=== PATIENT | female | born 1960 | race Caucasian/White ===

== ENCOUNTER 2017-02-27 15:27 | Emergency (ER) | payer MEDICAID ==
[~2017-02-27 15:27] MED LIST: DIAZEPAM RECTA2.5 MG PO; LOSARTAN POTASS25 M1 PO
[2017-02-27 15:41] VITALS: BP 125/81
== END 2017-02-27 17:31 | disposition left against medical advice (07) ==
LOC: ED 15:27
DX: Z53.21 Procedure and treatment not carried out due to patient leaving prior to being seen by health care provider (principal)

== ENCOUNTER 2017-02-27 21:36 | Emergency (ER) | payer SELFPAY ==
[2017-02-27 23:48] LABS: CALCIUM 9.3 mg/dL (8.5-10.1); CARBON DIOXIDE 28.7 mmol/L (21-32); CHLORIDE SERUM 101 mmol/L (98-107); CREATININE SERUM 0.7 mg/dL (0.6-1.0); GFR1 > 60 mL/min; GLUCOSE SERUM 106 mg/dL (74-106); POTASSIUM SERUM 3.4 mmol/L (3.5-5.1); SODIUM SERUM 140 mmol/L (136-145)
[2017-02-27 23:52] LABS: ALBUMIN 3.7 g/dL (3.4-5.0); ALKALINE PHOSPHATASE 153 U/L (46-116); ALT/SGPT 81 U/L (14-59); AST/SGOT 52 U/L (15-37); BILIRUBIN TOTAL 0.2 mg/dL (0.20-1.00); LIPASE 177 IU/L (73-393); TOTAL PROTEIN, SERUM 7.5 g/dL (6.4-8.2)
[2017-02-27 23:54] LABS: BASOPHIL % 0.7 % (0-2); PLATELET COUNT 244 x10^3mcL (130-400)
[2017-02-27 23:55] LABS: RED CELL DISTRIBUTION WIDTH 17.1 % (11.5-14.5)
[2017-02-28 01:58] VITALS: BP 127/75
== END 2017-02-28 01:58 | disposition home or self-care (01) ==
LOC: ED 21:36
PROVIDERS: Emergency Medicine Emergency Medical Services
DX: K80.20 Calculus of gallbladder without cholecystitis without obstruction (principal)
CPT/HCPCS: 36415; Q0092

== ENCOUNTER 2017-09-03 21:29 | Inpatient (IN) | payer MEDICAID ==
[~2017-09-03] VITALS: Ht 170.2 cm; Wt 110.2 kg
[2017-09-03 23:53] LABS: BASOPHIL % 1.1 % (0-2); PLATELET COUNT 235 x10^3mcL (130-400)
[2017-09-03 23:54] LABS: RED CELL DISTRIBUTION WIDTH 14.9 % (11.5-14.5)
[2017-09-04 00:04] LABS: ALBUMIN 4.1 g/dL (3.4-5.0); ALKALINE PHOSPHATASE 120 U/L (46-116); ALT/SGPT 51 U/L (14-59); AST/SGOT 25 U/L (15-37); BILIRUBIN TOTAL 0.4 mg/dL (0.20-1.00); CALCIUM 9.1 mg/dL (8.5-10.1); CARBON DIOXIDE 26.9 mmol/L (21-32); CHLORIDE SERUM 105 mmol/L (98-107); CREATININE SERUM 0.6 mg/dL (0.6-1.0); GFR1 > 60 mL/min; GLUCOSE SERUM 135 mg/dL (74-106); POTASSIUM SERUM 3.7 mmol/L (3.5-5.1); SODIUM SERUM 139 mmol/L (136-145); TOTAL PROTEIN, SERUM 7.1 g/dL (6.4-8.2)
[2017-09-04 02:20] VITALS: BP 122/74
[2017-09-04 03:13] VITALS: BP 110/56
[2017-09-04 04:01] LABS: MAGNESIUM 2.2 mg/dL (1.8-2.4); PHOSPHOROUS 3.3 mg/dL (2.5-4.9)
[2017-09-04 04:02] LABS: T3 TOTAL 0.83 ng/mL
[2017-09-04 04:11] LABS: CHOLESTEROL/HDL RATIO 4.4
[2017-09-04 04:27] LABS: FREE T4 0.78 ng/dL (0.76-1.46); FREE THYROXINE INDEX 2.2 ug/dL (1.4-4.5); T4(THYROXINE) 7.7 ug/dL (4.7-13.3)
[2017-09-04 05:53] LABS: microscopic required? YES; urine erythrocyte NEGATIVE (NEGATIVE)
[2017-09-04 06:00] LABS: BASOPHIL % 0.1 % (0-2); PLATELET COUNT 212 x10^3mcL (130-400)
[2017-09-04 06:01] LABS: AMPHETAMINE QUAL UR NONE DETECTED (NEG <=1000)
[2017-09-04 06:25] LABS: CALCIUM 9.1 mg/dL (8.5-10.1); CARBON DIOXIDE 25.4 mmol/L (21-32); CHLORIDE SERUM 104 mmol/L (98-107); CREATININE SERUM 0.7 mg/dL (0.6-1.0); GFR1 > 60 mL/min; GLUCOSE SERUM 229 mg/dL (74-106); SODIUM SERUM 140 mmol/L (136-145)
[2017-09-04 06:51] LABS: RED CELL DISTRIBUTION WIDTH 14.6 % (11.5-14.5)
[2017-09-04 08:39] VITALS: BP 115/56
[2017-09-04 12:30] VITALS: BP 136/68
[2017-09-04 16:35] VITALS: Ht 170.2 cm; Wt 110.2 kg
[2017-09-04 16:48] VITALS: BP 124/69
[2017-09-04 20:46] VITALS: BP 120/57
[2017-09-05 05:13] VITALS: BP 133/63
[2017-09-05 07:21] LABS: CALCIUM 8.9 mg/dL (8.5-10.1); CARBON DIOXIDE 28.1 mmol/L (21-32); CHLORIDE SERUM 106 mmol/L (98-107); CREATININE SERUM 0.7 mg/dL (0.6-1.0); GFR1 > 60 mL/min; GLUCOSE SERUM 150 mg/dL (74-106); MAGNESIUM 2.3 mg/dL (1.8-2.4); PHOSPHOROUS 3.2 mg/dL (2.5-4.9); POTASSIUM SERUM 3.7 mmol/L (3.5-5.1); SODIUM SERUM 140 mmol/L (136-145)
[2017-09-05 08:37] VITALS: BP 135/62
[2017-09-05 08:55] LABS: PLATELET COUNT 218 x10^3mcL (130-400); RED CELL DISTRIBUTION WIDTH 15.3 % (11.5-14.5)
[2017-09-05 08:56] LABS: ATYPICAL LYMPH 0 %; BAND NEUTROPHIL 0 % (0-10); MONOCYTE 7 % (0-7); SEGMENTED NEUTROPHILS 80 % (37-75)
[2017-09-05 08:57] LABS: PLATELET MORPHOLOGY PLATELETS DECREASED; rbc morphology (normal/abnorm) ABNORMAL (NORMAL)
[2017-09-05 12:43] VITALS: BP 132/72
[2017-09-05 15:51] VITALS: BP 118/62
[2017-09-05 21:07] VITALS: BP 120/62
[2017-09-06 05:45] VITALS: BP 120/56
[2017-09-06 06:51] LABS: BASOPHIL % 0.3 % (0-2); PLATELET COUNT 231 x10^3mcL (130-400)
[2017-09-06 06:58] LABS: CALCIUM 8.8 mg/dL (8.5-10.1); CARBON DIOXIDE 28.7 mmol/L (21-32); CHLORIDE SERUM 104 mmol/L (98-107); CREATININE SERUM 0.8 mg/dL (0.6-1.0); GFR1 > 60 mL/min; GLUCOSE SERUM 140 mg/dL (74-106); POTASSIUM SERUM 3.9 mmol/L (3.5-5.1); SODIUM SERUM 141 mmol/L (136-145)
[2017-09-06 06:59] LABS: RED CELL DISTRIBUTION WIDTH 14.9 % (11.5-14.5)
[2017-09-06 09:32] VITALS: BP 128/60
[2017-09-06] MEDS ORDERED: COUMADIN2 MG PO (11:28)
[2017-09-06] MEDS ORDERED: PREDNISONE10 M1 PO (11:31)
[2017-09-06] MEDS ORDERED: LAC PO (11:34)
[2017-09-06] MEDS ORDERED: LEVAQUIN750 MG PO (11:34)
[2017-09-06] MEDS ORDERED: ATORVASTATIN CA40 M1 PO (12:09)
[2017-09-06 13:52] VITALS: BP 128/60
[2017-09-06 17:54] VITALS: BP 121/59
== END 2017-09-06 18:46 | disposition home or self-care (01) | DRG 197 ==
LOC: ED 21:29 → DU 09-04 01:48 → MU 09-06 10:08
PROVIDERS: Emergency Medicine; Family Medicine
DX: I82.432 Acute embolism and thrombosis of left popliteal vein (principal); N17.0 Acute kidney failure with tubular necrosis; J45.901 Unspecified asthma with (acute) exacerbation; N39.0 Urinary tract infection, site not specified; E66.01 Morbid (severe) obesity due to excess calories; F32.9 Major depressive disorder, single episode, unspecified; E78.2 Mixed hyperlipidemia; F17.200 Nicotine dependence, unspecified, uncomplicated; F41.9 Anxiety disorder, unspecified; M85.68 Other cyst of bone, other site; E02 Subclinical iodine-deficiency hypothyroidism
CPT/HCPCS: 82962; 83880; 84439; 85378; 94150; J1644; J1885; J1956; J2405; J2920; J2930; J3490; J7620; Q0092

== ENCOUNTER → 2017-09-27 | Outpatient (CLI) | payer MEDICAID ==
[~2017-09-27] MED LIST changes: +ATORVASTATIN CA40 M1 PO; +COUMADIN2 MG PO; +LAC PO; +LEVAQUIN750 MG PO; +PREDNISONE10 M1 PO
== END | disposition home or self-care (01) ==
LOC: LB 09:43
DX: H53.2 Diplopia (principal); R58 Hemorrhage, not elsewhere classified; R74.0 Nonspecific elevation of levels of transaminase and lactic acid dehydrogenase [LDH]; I82.439 Acute embolism and thrombosis of unspecified popliteal vein

== ENCOUNTER → 2017-09-29 | Outpatient (CLI) | payer MEDICAID | END | disposition home or self-care (01) | LOC: US 09:00 | PROC: BW28ZZZ Computerized Tomography (CT Scan) of Head (ICD-10-PCS; principal; 2017-09-29) | PROC: BW40ZZZ Ultrasonography of Abdomen (ICD-10-PCS; 2017-09-29) | DX: R74.0 Nonspecific elevation of levels of transaminase and lactic acid dehydrogenase [LDH] (principal); H53.2 Diplopia ==

== ENCOUNTER 2017-11-26 13:49 | Emergency (ER) | payer SELFPAY ==
[~2017-11-26] VITALS: Ht 170.2 cm; Wt 109.8 kg
[2017-11-26 13:55] VITALS: Ht 170.2 cm; Wt 109.8 kg
[2017-11-26 14:48] LABS: PLATELET COUNT 245 x10^3mcL (130-400); RED CELL DISTRIBUTION WIDTH 13.7 % (11.5-14.5)
[2017-11-26 14:55] LABS: BASOPHIL % 2.1 % (0-2)
[2017-11-26 15:05] LABS: CALCIUM 8.9 mg/dL (8.5-10.1); CARBON DIOXIDE 24.6 mmol/L (21-32); CHLORIDE SERUM 105 mmol/L (98-107); CREATININE SERUM 0.8 mg/dL (0.6-1.0); GFR1 > 60 mL/min; GLUCOSE SERUM 99 mg/dL (74-106); POTASSIUM SERUM 3.7 mmol/L (3.5-5.1); SODIUM SERUM 142 mmol/L (136-145)
[2017-11-26 15:10] LABS: ALBUMIN 3.9 g/dL (3.4-5.0); ALKALINE PHOSPHATASE 111 U/L (46-116); ALT/SGPT 32 U/L (14-59); AST/SGOT 22 U/L (15-37); BILIRUBIN TOTAL 0.2 mg/dL (0.20-1.00); TOTAL PROTEIN, SERUM 6.7 g/dL (6.4-8.2)
[2017-11-26 18:57] VITALS: BP 123/56
== END 2017-11-26 18:57 | disposition home or self-care (01) ==
LOC: ED 13:49
PROVIDERS: Emergency Medicine
DX: J45.909 Unspecified asthma, uncomplicated (principal); F17.210 Nicotine dependence, cigarettes, uncomplicated; Z71.6 Tobacco abuse counseling
CPT/HCPCS: 83880; 99406; J2930; J7030; J7613; J7644; Q0092

== ENCOUNTER 2017-12-01 16:41 | Inpatient (IN) | payer MEDICAID ==
[~2017-12-01] VITALS: Ht 170.2 cm; Wt 104.8 kg
[2017-12-01 16:44] VITALS: Ht 170.2 cm; Wt 104.8 kg
[2017-12-01 17:27] LABS: BASOPHIL % 0.6 % (0-2); PLATELET COUNT 247 x10^3mcL (130-400); RED CELL DISTRIBUTION WIDTH 13.6 % (11.5-14.5)
[2017-12-01 17:57] LABS: CALCIUM 8.9 mg/dL (8.5-10.1); CHLORIDE SERUM 103 mmol/L (98-107); CREATININE SERUM 0.7 mg/dL (0.6-1.0); GFR1 > 60 mL/min; GLUCOSE SERUM 86 mg/dL (74-106); POTASSIUM SERUM 3.9 mmol/L (3.5-5.1); SODIUM SERUM 140 mmol/L (136-145)
[2017-12-01 18:04] LABS: ALBUMIN 3.6 g/dL (3.4-5.0); ALKALINE PHOSPHATASE 109 U/L (46-116); ALT/SGPT 39 U/L (14-59); AST/SGOT 30 U/L (15-37); BILIRUBIN TOTAL 0.2 mg/dL (0.20-1.00); HDL CHOLESTEROL 48 mg/dL (40-60); TOTAL PROTEIN, SERUM 6.7 g/dL (6.4-8.2)
[2017-12-01 18:06] LABS: CHOLESTEROL 228 mg/dL (<200)
[2017-12-01 20:06] LABS: CHOLESTEROL/HDL RATIO 4.7; MAGNESIUM 2.1 mg/dL (1.8-2.4); PHOSPHOROUS 3.9 mg/dL (2.5-4.9)
[2017-12-01 20:14] LABS: FREE T4 0.99 ng/dL (0.76-1.46); FREE THYROXINE INDEX 2.3 ug/dL (1.4-4.5); T4(THYROXINE) 7.5 ug/dL (4.7-13.3)
[2017-12-01 20:24] LABS: T3 TOTAL 1.55 ng/mL
[2017-12-01] MEDS ORDERED: AMITRIPTYLINE H25 MG PO (20:41)
[2017-12-01] MEDS ORDERED: DIAZEPAM5 MG PO (20:41)
[2017-12-01] MEDS ORDERED: CLONAZEPAM2 MG PO (20:41)
[2017-12-01 21:10] VITALS: BP 126/64
[2017-12-02] MEDS ORDERED: FLUOXETINE HYDR10 M1 PO (00:47)
[2017-12-02 05:53] VITALS: BP 117/55
[2017-12-02 06:05] LABS: PLATELET COUNT 254 x10^3mcL (130-400); RED CELL DISTRIBUTION WIDTH 13.9 % (11.5-14.5)
[2017-12-02 06:27] LABS: CALCIUM 9.1 mg/dL (8.5-10.1); CARBON DIOXIDE 29.8 mmol/L (21-32); CHLORIDE SERUM 103 mmol/L (98-107); CREATININE SERUM 0.7 mg/dL (0.6-1.0); GFR1 > 60 mL/min; GLUCOSE SERUM 168 mg/dL (74-106); POTASSIUM SERUM 4.2 mmol/L (3.5-5.1); SODIUM SERUM 141 mmol/L (136-145)
[2017-12-02 06:42] LABS: BASOPHIL % 0 % (0-2)
[2017-12-02 07:39] LABS: microscopic required? NO
[2017-12-02 08:30] VITALS: BP 149/59
[2017-12-02 08:34] LABS: urine erythrocyte NEGATIVE (NEGATIVE)
[2017-12-02 09:58] LABS: AMPHETAMINE QUAL UR NONE DETECTED (See below)
[2017-12-02 12:21] VITALS: BP 119/50
[2017-12-02 18:09] VITALS: BP 129/69
[2017-12-02 21:08] VITALS: BP 112/58
[2017-12-03 04:28] VITALS: BP 109/45
[2017-12-03 05:46] LABS: BASOPHIL % 0.2 % (0-2); PLATELET COUNT 233 x10^3mcL (130-400); RED CELL DISTRIBUTION WIDTH 13.8 % (11.5-14.5)
[2017-12-03 06:07] LABS: CALCIUM 8.9 mg/dL (8.5-10.1); CARBON DIOXIDE 27.5 mmol/L (21-32); CHLORIDE SERUM 105 mmol/L (98-107); CREATININE SERUM 0.7 mg/dL (0.6-1.0); GFR1 > 60 mL/min; GLUCOSE SERUM 141 mg/dL (74-106); MAGNESIUM 2.5 mg/dL (1.8-2.4); PHOSPHOROUS 3.3 mg/dL (2.5-4.9); POTASSIUM SERUM 4.5 mmol/L (3.5-5.1); SODIUM SERUM 141 mmol/L (136-145)
[2017-12-03 10:15] VITALS: BP 129/57
[2017-12-03] MEDS ORDERED: MEDDP PO (11:44)
[2017-12-03] MEDS ORDERED: NIC21 TD (11:44)
[2017-12-03] MEDS ORDERED: PROVENTIL0.09 MG/A1 INH (11:46)
[2017-12-03 13:06] VITALS: BP 129/57
[2017-12-03 13:26] VITALS: BP 128/72
== END 2017-12-03 13:49 | disposition home or self-care (01) | DRG 141 ==
LOC: ED 16:41 → DU 20:05
PROVIDERS: Emergency Medicine; Family Medicine
DX: J45.901 Unspecified asthma with (acute) exacerbation (principal); J96.00 Acute respiratory failure, unspecified whether with hypoxia or hypercapnia; N17.0 Acute kidney failure with tubular necrosis; M94.0 Chondrocostal junction syndrome [Tietze]; R73.03 Prediabetes; E78.5 Hyperlipidemia, unspecified; F32.9 Major depressive disorder, single episode, unspecified; F17.210 Nicotine dependence, cigarettes, uncomplicated; Z86.718 Personal history of other venous thrombosis and embolism; Z68.42 Body mass index [BMI] 45.0-49.9, adult
CPT/HCPCS: 83880; 84439; 85378; 94150; 99406; J1644; J2920; J2930; J7030; J7613; J7620; Q0092

== ENCOUNTER 2018-05-04 15:25 | Emergency (ER) | payer SELFPAY, OTHER, MEDICAID | END 2018-05-04 17:57 | disposition home or self-care (01) | LOC: ED 15:25 ==

== ENCOUNTER 2018-09-20 17:17 | Emergency (ER) | payer SELFPAY ==
[~2018-09-20] VITALS: Ht 167.6 cm; Wt 105.7 kg
[~2018-09-20 17:17] MED LIST changes: +AMITRIPTYLINE H25 MG PO; +CLONAZEPAM2 MG PO; +DIAZEPAM5 MG PO; +FLUOXETINE HYDR10 M1 PO; +MEDDP PO; +NIC21 TD; +PROVENTIL0.09 MG/A1 INH
[2018-09-20 17:29] VITALS: Ht 167.6 cm; Wt 105.7 kg
[2018-09-20 18:15] LABS: BASOPHIL % 0.5 % (0-2); PLATELET COUNT 286 x10^3mcL (130-400)
[2018-09-20 18:17] LABS: CALCIUM 8.6 mg/dL (8.5-10.1); CARBON DIOXIDE 26.8 mmol/L (21-32); CHLORIDE SERUM 103 mmol/L (98-107); CREATININE SERUM 0.7 mg/dL (0.6-1.0); GFR1 > 60 mL/min; GLUCOSE SERUM 105 mg/dL (74-106); POTASSIUM SERUM 4.3 mmol/L (3.5-5.1); SODIUM SERUM 138 mmol/L (136-145)
[2018-09-20 18:20] LABS: ALKALINE PHOSPHATASE 114 U/L (46-116); ALT/SGPT 36 U/L (14-59); AST/SGOT 13 U/L (15-37); BILIRUBIN TOTAL 0.2 mg/dL (0.20-1.00)
[2018-09-20 18:21] LABS: ALBUMIN 3.3 g/dL (3.4-5.0); CHOLESTEROL 237 mg/dL (<200); HDL CHOLESTEROL 32 mg/dL (40-60); TOTAL PROTEIN, SERUM 6.1 g/dL (6.4-8.2)
[2018-09-20 18:22] LABS: RED CELL DISTRIBUTION WIDTH 16.8 % (11.5-14.5)
[2018-09-20 19:25] LABS: microscopic required? NO
[2018-09-20 19:31] LABS: urine erythrocyte NEGATIVE (NEGATIVE)
[2018-09-20 20:07] VITALS: BP 119/72
== END 2018-09-20 20:07 | disposition home or self-care (01) ==
LOC: ED 17:17
PROVIDERS: Emergency Medicine
DX: F43.20 Adjustment disorder, unspecified (principal); D64.9 Anemia, unspecified; E86.0 Dehydration; G47.00 Insomnia, unspecified
CPT/HCPCS: 36415; Q0092

== ENCOUNTER 2018-09-21 14:30 | Emergency (ER) | payer SELFPAY ==
[~2018-09-21] VITALS: Ht 165.1 cm; Wt 105.3 kg
[2018-09-21 14:34] VITALS: Ht 165.1 cm; Wt 105.3 kg
[2018-09-21 16:35] LABS: BASOPHIL % 0.8 % (0-2); CALCIUM 8.7 mg/dL (8.5-10.1); CARBON DIOXIDE 27.1 mmol/L (21-32); CHLORIDE SERUM 105 mmol/L (98-107); CREATININE SERUM 0.6 mg/dL (0.6-1.0); GFR1 > 60 mL/min; GLUCOSE SERUM 101 mg/dL (74-106); PLATELET COUNT 279 x10^3mcL (130-400); SODIUM SERUM 140 mmol/L (136-145)
[2018-09-21 16:36] LABS: RED CELL DISTRIBUTION WIDTH 17.3 % (11.5-14.5)
[2018-09-21 16:40] LABS: ALKALINE PHOSPHATASE 103 U/L (46-116); ALT/SGPT 29 U/L (14-59); AST/SGOT 20 U/L (15-37); BILIRUBIN TOTAL 0.22 mg/dL (0.20-1.00); LIPASE 136 IU/L (73-393); TOTAL PROTEIN, SERUM 6.2 g/dL (6.4-8.2)
[2018-09-21 16:41] LABS: ALBUMIN 3.2 g/dL (3.4-5.0)
[2018-09-21 16:46] LABS: UA SPECIFIC GRAVITY 1.015 (1.005-1.035); microscopic required? YES; urine erythrocyte NEGATIVE (NEGATIVE)
[2018-09-21 18:10] VITALS: BP 106/71
== END 2018-09-21 18:10 | disposition home or self-care (01) ==
LOC: ED 14:30
PROVIDERS: Emergency Medicine
DX: R11.10 Vomiting, unspecified (principal); R19.7 Diarrhea, unspecified; R10.13 Epigastric pain; E11.9 Type 2 diabetes mellitus without complications; F32.9 Major depressive disorder, single episode, unspecified; R53.1 Weakness; G47.00 Insomnia, unspecified; R42 Dizziness and giddiness
CPT/HCPCS: J0696; J2405; J3490; J7030

== ENCOUNTER 2018-10-07 17:17 | Emergency (ER) | payer SELFPAY ==
[~2018-10-07] VITALS: Ht 167.6 cm; Wt 106.1 kg
[2018-10-07 17:27] VITALS: Ht 167.6 cm; Wt 106.1 kg
[2018-10-07 18:44] LABS: BASOPHIL % 0.9 % (0-2); PLATELET COUNT 318 x10^3mcL (130-400)
[2018-10-07 18:47] LABS: RED CELL DISTRIBUTION WIDTH 23.8 % (11.5-14.5)
[2018-10-07 18:52] LABS: CALCIUM 9.1 mg/dL (8.5-10.1); CARBON DIOXIDE 30.8 mmol/L (21-32); CHLORIDE SERUM 104 mmol/L (98-107); CREATININE SERUM 0.8 mg/dL (0.6-1.0); GFR1 > 60 mL/min; GLUCOSE SERUM 94 mg/dL (74-106); SODIUM SERUM 142 mmol/L (136-145)
[2018-10-07 18:53] LABS: rbc morphology (normal/abnorm) ABNORMAL (NORMAL)
[2018-10-07 20:33] VITALS: BP 125/82
== END 2018-10-07 20:33 | disposition home or self-care (01) ==
LOC: ED 17:17
PROVIDERS: Emergency Medicine
DX: J45.901 Unspecified asthma with (acute) exacerbation (principal); R53.83 Other fatigue; F32.9 Major depressive disorder, single episode, unspecified
CPT/HCPCS: 36415; J7512; J7644

== ENCOUNTER 2018-10-14 20:58 | Emergency (ER) | payer SELFPAY ==
[~2018-10-14] VITALS: Ht 167.6 cm; Wt 106.6 kg
[2018-10-14 21:02] VITALS: Ht 167.6 cm; Wt 106.6 kg
[2018-10-14 21:41] LABS: BASOPHIL % 0.6 % (0-2); PLATELET COUNT 377 x10^3mcL (130-400)
[2018-10-14 21:43] LABS: RED CELL DISTRIBUTION WIDTH 24.8 % (11.5-14.5)
[2018-10-14 21:47] LABS: CALCIUM 9.1 mg/dL (8.5-10.1); CARBON DIOXIDE 27.5 mmol/L (21-32); CHLORIDE SERUM 106 mmol/L (98-107); CREATININE SERUM 0.6 mg/dL (0.6-1.0); GFR1 > 60 mL/min; GLUCOSE SERUM 118 mg/dL (74-106); POTASSIUM SERUM 4.2 mmol/L (3.5-5.1); SODIUM SERUM 142 mmol/L (136-145)
[2018-10-14 21:52] LABS: ALBUMIN 3.5 g/dL (3.4-5.0); ALKALINE PHOSPHATASE 112 U/L (46-116); ALT/SGPT 39 U/L (14-59); AST/SGOT 24 U/L (15-37); BILIRUBIN TOTAL 0.2 mg/dL (0.20-1.00); TOTAL PROTEIN, SERUM 6.9 g/dL (6.4-8.2)
[2018-10-14 22:18] LABS: rbc morphology (normal/abnorm) ABNORMAL (NORMAL)
[2018-10-14 22:19] LABS: target cell (codocyte) 1+
[2018-10-14 23:10] VITALS: BP 12/77
== END 2018-10-14 23:10 | disposition home or self-care (01) ==
LOC: ED 20:58
PROVIDERS: Emergency Medicine
DX: J44.1 Chronic obstructive pulmonary disease with (acute) exacerbation (principal); F41.9 Anxiety disorder, unspecified; F32.9 Major depressive disorder, single episode, unspecified
CPT/HCPCS: 36415; 83880; J1885; J7512; J7613; J7644; Q0092

== ENCOUNTER 2019-05-10 18:35 | Emergency (ER) | payer MEDICAID ==
[~2019-05-10] VITALS: Ht 170.2 cm; Wt 100.7 kg
[2019-05-10 18:50] VITALS: Ht 170.2 cm; Wt 100.7 kg
[2019-05-10 20:20] LABS: BASOPHIL % 0.5 % (0-2); PLATELET COUNT 226 x10^3mcL (130-400); RED CELL DISTRIBUTION WIDTH 15.4 % (11.5-14.5)
[2019-05-10 20:24] LABS: microscopic required? NO
[2019-05-10 20:28] LABS: UA SPECIFIC GRAVITY <=1.005 (1.005-1.035); urine erythrocyte NEGATIVE (NEGATIVE)
[2019-05-10 20:37] LABS: CARBON DIOXIDE 27.1 mmol/L (21-32); CHLORIDE SERUM 106 mmol/L (98-107); CREATININE SERUM 0.7 mg/dL (0.6-1.0); GFR1 > 60 mL/min; GLUCOSE SERUM 100 mg/dL (74-106); POTASSIUM SERUM 3.7 mmol/L (3.5-5.1); SODIUM SERUM 141 mmol/L (136-145)
[2019-05-10 20:38] LABS: ALBUMIN 3.9 g/dL (3.4-5.0); ALKALINE PHOSPHATASE 127 U/L (46-116); ALT/SGPT 36 U/L (14-59); AMYLASE 75 U/L (25-115); AST/SGOT 24 U/L (15-37); BILIRUBIN TOTAL 0.3 mg/dL (0.20-1.00); CALCIUM 8.7 mg/dL (8.5-10.1); LIPASE 159 IU/L (73-393); TOTAL PROTEIN, SERUM 7.3 g/dL (6.4-8.2)
[2019-05-11 00:07] VITALS: BP 117/66
== END 2019-05-11 00:07 | disposition home or self-care (01) ==
LOC: ED 18:35
PROVIDERS: Emergency Medicine
DX: B34.9 Viral infection, unspecified (principal); R10.9 Unspecified abdominal pain; J45.909 Unspecified asthma, uncomplicated; F17.200 Nicotine dependence, unspecified, uncomplicated
CPT/HCPCS: 99406; J1885; J2405; J7030